=== PATIENT | female | born 1985 | race Native Hawaiian/Other Pacific Islander ===

== ENCOUNTER 2016-05-30 09:02 | Emergency (ER) | payer OTHER ==
[2016-05-30 09:31] LABS: URINE BILIRUBIN NEGATIVE (NEGATIVE); URINE BLOOD TRACE (NEGATIVE); URINE GLUCOSE (UA) NEGATIVE (NEGATIVE); URINE LEUKOCYTE ESTERASE NEGATIVE (NEGATIVE); URINE NITRITE NEGATIVE (NEGATIVE); URINE PROTEIN NEGATIVE (NEGATIVE); URINE UROBILINOGEN NORMAL (0-1 mg/dl)
[2016-05-30 09:34] LABS: HCG,QUALITATIVE URINE NEGATIVE; URINE APPEARANCE CLEAR; URINE COLOR YELLOW
[2016-05-30 10:04] LABS: ABSOLUTE NEUTROPHIL COUNT 3.7 K/mm3 (1.8-7.7); BASO % 0.4 % (0.2-1.0); EOS # 0.1 (0.0-0.5); EOS % 1.1 % (0.9-2.9); HEMATOCRIT 43.2 % (37.0-47.0); HEMOGLOBIN 14.6 gm/l (12.0-16.0); IMM NEUT% 0.4 % (0-1); LYMPH # 2.9 (1.0-4.8); MEAN CELL VOLUME 89.8 fl (81.0-99.0); MEAN CORPUSCULAR HEMOGLOBIN 30.4 pg (27.0-31.0); MEAN CORPUSCULAR HGB CONC 33.8 g/dl (33.0-37.0); MEAN PLATELET VOLUME 10.2 fl (7.4-10.4); MONO # 0.4 (0.0-0.8); MONO % 5.2 % (4-12); NEUT % 51.9 % (43-75); PLATELET COUNT 270 K/mm3 (130-400); RED CELL DISTRIBUTION WIDTH 12.6 % (11.5-14.5)
[2016-05-30 10:17] LABS: ALB/GLOB RATIO 1.6 (>1.0); ALBUMIN 4.5 gm/dL (3.5-5.7); CALCIUM 9.5 mg/dL (8.6-10.3)
[2016-05-30 10:19] LABS: URINE BACTERIA TRACE; URINE WBC 0-1 /hpf
--- NOTE | 2016-05-30 10:33 | US ---
LIMITED ABDOMINAL ULTRASOUND HISTORY: Left upper quadrant rib pain. No known trauma. Limited sonography of the left upper quadrant was performed. FINDINGS: Splenic length: 8.2 cm. Splenic volume: 74.9 mL. Focal splenic lesions: None. Regional free fluid: None. IMPRESSION: Unremarkable sonographic appearance of the spleen with no focal splenic lesion or splenomegaly. No regional free fluid. Results were electronically transmitted to the electronic medical record at 05/30/2016 at 1029 hours.
--- NOTE | 2016-05-30 10:43 | RAD ---
CHEST 2 VIEWS HISTORY: Right-sided chest pain. Frontal and lateral chest radiographs dated 05/30/2016.. COMPARISON: None. FINDINGS: FOCAL AIRSPACE OPACITY: No gross airspace consolidation. PLEURAL EFFUSION: None. CARDIOMEDIASTINAL SILHOUETTE: Nonenlarged. PNEUMOTHORAX: None identified. OSSEOUS STRUCTURES: No grossly destructive lesions. Minor mid thoracic disc degeneration. IMPRESSION: No acute cardiopulmonary process noted.
== END 2016-05-30 11:34 | disposition home or self-care (01) ==
LOC: ED 09:02
DX: R07.89 Other chest pain (principal); R10.12 Left upper quadrant pain